=== PATIENT | male | born 1960 | race Caucasian/White ===

== ENCOUNTER 2021-08-18 13:48 | Emergency (ER) | payer OTHER ==
[~2021-08-18] VITALS: Ht 164 cm; Wt 77.2 kg
--- NOTE | 2021-08-18 14:02 | ED Fall/Injury ---
General Stated Complaint: RT ANKLE INJ Source: patient Exam Limitations: no limitations History of Present Illness Date Seen by Provider: Aug 18, 2021 Time Seen by Provider: 13:50 Initial Comments 61-year-old male with past medical history of hypertension and polysubstance use coming in after he was tearing down a barn, fell through a wooden piece in the floor, landed about 8 feet down on his right leg. Did not hit his head or pass out. Occurred about an hour prior to arrival. He did hit his right wrist on a concrete block and caused a laceration. Last tetanus he believes was around 10 years ago but he is unsure. He is not having significant pain. Most of his discomfort is in his right medial ankle with walking. Pain is better with not moving. He is otherwise denying any other acute complaints. Allergies and Home Medications Allergies Coded Allergies: No Known Drug Allergies (Unverified , 08/18/21) Patient Home Medication List Home Medication List Reviewed: Yes Cephalexin (Cephalexin) 500 Mg Tablet, 500 MG PO TID Prescribed by: MAGDY ANGEL on 08/18/21 1438 Oxycodone HCl (Oxycodone HCl) 5 Mg Tablet, 5 MG PO Q8H PRN for PAIN-SEVERE (8- 10) Prescribed by: MAGDY ANGEL on 08/18/21 1439 Review of Systems Review of Systems Constitutional: No fever Eyes: Denies Blurred Vision Ears, Nose, Mouth, Throat: no symptoms reported Respiratory: no symptoms reported Cardiovascular: no symptoms reported Gastrointestinal: no symptoms reported Genitourinary: no symptoms reported Musculoskeletal: joint pain Skin: other (laceration to right wrist) Psychiatric/Neurological: No Symptoms Reported All Other Systems Reviewed Negative Unless Noted: Yes Past Ancqloi-Ltqhsu-Tvored Hx Patient Social History Tobacco Use?: Yes Tobacco type used: Cigarettes Substance use?: Yes Substance type: Methamphetamine, Marijuana Alcohol Use?: No Past Medical History Surgeries: Yes Gallbladder Physical Exam Vital Signs Vital Signs - First Documented 08/18/21 08/18/21 14:14 14:50 Temp 36.2 Pulse 54 Resp 18 B/P (MAP) 180/122 (141) Pulse Ox 98 O2 Delivery Room Air Capillary Refill : Height, Weight, BMI Height: '" Weight: lbs. oz. kg; BMI Method: General Appearance: WD/WN, no apparent distress HEENT: PERRL/EOMI, normal ENT inspection, pharynx normal Neck: non-tender, full range of motion, supple, normal inspection Cardiovascular: regular rate, rhythm, no edema, no murmur Respiratory: chest non-tender, lungs clear, normal breath sounds, no respiratory distress, no accessory muscle use Gastrointestinal: normal bowel sounds, non tender, soft; No distended, No guarding, No rebound Back: normal inspection, no CVA tenderness, no vertebral tenderness Extremities: normal range of motion, no pedal edema, no calf tenderness, normal capillary refill, other (right medial ankle abrasion with pain over the medial malleolus, 4 cm laceration to the ulnar aspect of the right wrist, normal distal sensation, capillary refill, motor exam) Neurologic/Psychiatric: no motor/sensory deficits, alert, normal mood/affect Skin: normal color, warm/dry Lymphatic: no adenopathy Kameron Coma Score Best Eye Response: (4) Open Spontaneously Best Verbal Response: (5) Oriented Best Motor Response: (6) Obeys Commands Procedures/Interventions Wound Location: Upper Extremities Other Wound Location right wrist Wound Length (cm): 4 Wound's Depth, Shape: sub Q Wound Explored: clean Irrigated w/ Saline (ccs): 400 Anesthesia: 1% Lidocaine Volume Anesthetic (ccs): 4 Suture: Ethlion Suture Size: 4-0 (2 simple interrupted on the ends and one running stitch in between) Number of Sutures: 3 Sterile Dressing Applied?: Yes Progress Patient was anesthetized and tolerated the procedure well. There were 2 simple interrupted stitches placed on the ends of the wound with a running stitch in between. Tolerated it well. Antibiotics placed on it and it was wrapped with a sterile dressing. Progress/Results/Core Measures Results/Orders My Orders Orders - MAGDY ANGEL MD Ankle 3 View Right (08/18/21 14:02) Wrist 3 View Right (08/18/21 14:02) Dipht,Pertuss(Acell),Tet Adult (Boostrix (08/18/21 14:15) Medications Given in ED Current Medications Medications Dose Ordered Sig/Jose Route Start Time Stop Time Status Last Admin Dose Admin Diphtheria/ Tetanus/Acell Pertussis 0.5 ml ONCE ONCE IM 08/18/21 14:15 08/18/21 14:16 DC 08/18/21 14:26 0.5 ML Vital Signs/I&O 08/18/21 08/18/21 14:14 14:50 Temp 36.2 Pulse 54 54 Resp 18 18 B/P (MAP) 180/122 (141) 180/122 Pulse Ox 98 98 O2 Delivery Room Air Room Air Progress Progress Note : Progress Note 61-year-old male with above history coming in after a fall. ABCs were intact and vitals were stable on presentation. Physical exam with right medial ankle tenderness and laceration to the right ulnar aspect of his wrist. X-ray of the wrist negative for acute abnormalities. X-ray of the right ankle on my interpretation with a medial malleolus fracture that is essentially nondisplaced. Patient was requesting a boot and crutches which I obliged to, but I told him he needs to see orthopedics need a cast placed. He is [place] head and cervical spine rule negative I believe he is stable for discharge with outpatient follow-up. He was sent home with strict return precautions Departure Impression Primary Impression: Medial malleolar fracture Qualified Codes: S82.54XA - Nondisplaced fracture of medial malleolus of right tibia, initial encounter for closed fracture Additional Impression: Wrist laceration Qualified Codes: S61.511A - Laceration without foreign body of right wrist, initial encounter Disposition: 01 HOME, SELF-CARE Condition: Stable Departure-Patient Inst. Decision time for Depature: 14:36 Referrals: ABIDA HALL MD (PCP) Primary Care Physician ABIODUN TORRES Patient Instructions: Lower Leg Fracture ED Add. Discharge Instructions: Do not put any weight on the leg, keep the boot on at all times. You can take Tylenol and/or ibuprofen as needed for pain. You can take the oxycodone if that is not working. Follow-up with Jaay Torres here in town for the fracture, you will need a cast. The stitches need to come out between 7 and 10 days. If you have any redness running up your arm, pus coming out, or new fever, please come back to the ER to be seen. Scripts Oxycodone HCl (Oxycodone HCl) 5 Mg Tablet 5 MG PO Q8H PRN for PAIN-SEVERE (8-10) for 3 Days, #9 TAB Prov: MAGDY ANGEL MD 08/18/21 Cephalexin (Cephalexin) 500 Mg Tablet 500 MG PO TID for 7 Days, #21 TAB Prov: MAGDY ANGEL MD 08/18/21 Work/School Note: Work Release Form Date Seen in the Emergency Department: Aug 18, 2021 Return to Work: Aug 20, 2021 Restrictions: Need Release from Doctor Other Restrictions Listed Below: Cannot walk on right foot MAGDY ANGEL MD Aug 18, 2021 14:02
[2021-08-18] MEDS ORDERED: TETANUS,DIPTH,PERTUSS P/F (BOOSTRIX) 0.5 ML VIAL IM ONE (14:15)
--- NOTE | 2021-08-18 14:28 | Diagnostic Imaging Report ---
INDICATION: Right wrist pain, fall. FINDINGS: Three views of the right wrist demonstrate no fracture or dislocation. Articular surfaces are normal. No osseous lesion or bony erosion. IMPRESSION: No fracture identified. Dictated by: Dictated on workstation # [id number]
--- NOTE | 2021-08-18 14:28 | Diagnostic Imaging Report ---
INDICATION: Right ankle injury, pain and swelling. FINDINGS: Three views of the right ankle demonstrate nondisplaced fracture of the medial malleolus and age-indeterminate chip fracture of the distal fibula. The ankle mortise is well aligned. IMPRESSION: 1. Definite acute medial malleolus fracture. 2. Age-indeterminate chip fracture off the inferior aspect of the fibula. Dictated by: Dictated on workstation # [id number]
[2021-08-18] MEDS ORDERED: OXYC5TAB PO (14:38)
[2021-08-18] MEDS ORDERED: CEPH500T PO (14:38)
[2021-08-18 14:50] VITALS: BP 180/122
== END 2021-08-18 14:45 | disposition home or self-care (01) ==
LOC: ER FS 13:51
DX: S82.54XA Nondisplaced fracture of medial malleolus of right tibia, initial encounter for closed fracture (principal); S61.511A Laceration without foreign body of right wrist, initial encounter; F17.210 Nicotine dependence, cigarettes, uncomplicated; Z23 Encounter for immunization; W17.89XA Other fall from one level to another, initial encounter; Y93.H2 Activity, gardening and landscaping
CPT/HCPCS: 12031; 73110; 73610; 90715

== ENCOUNTER → 2021-09-02 | Outpatient (CLI) | payer OTHER ==
[~2021-09-02] MED LIST: CEPH500T PO; OXYC5TAB PO
--- NOTE | 2021-09-02 09:44 | Diagnostic Imaging Report ---
INDICATION: Follow-up of ankle fracture. COMPARISON: 08/18/2021. The nondisplaced medial malleolar fracture remains in good alignment. The fracture line is still visible though early bony healing has occurred. There is rather advanced degenerative disease, especially along the lateral talofibular joint. Soft tissue swelling again noted. IMPRESSION: Nondisplaced medial malleolar fracture showing early healing. Dictated by: Dictated on workstation # [id number]
== END ==
LOC: RAD FS 09:18
PROVIDERS: ATTEND Nurse Practitioner
DX: S82.54XD Nondisplaced fracture of medial malleolus of right tibia, subsequent encounter for closed fracture with routine healing (principal); X58.XXXD Exposure to other specified factors, subsequent encounter
CPT/HCPCS: 73610